=== PATIENT | male | born 1950 | race Caucasian/White ===

== ENCOUNTER 2016-06-06 12:00 | Day surgery (SDC) | payer MEDICARE ==
[2016-06-06] MEDS ORDERED: LACTATED RINGERS 1,000 ML IV ONE (12:10)
[2016-06-06] MEDS ORDERED: MIDAZOLAM 2 MG/2 ML VIAL IVP ONE (14:05)
[2016-06-06] MEDS ORDERED: fentaNYL 250 MCG/5 ML VIAL IVP ONE (14:05)
== END 2016-06-06 12:01 | disposition home or self-care (01) ==
PROC: 0DJD8ZZ Inspection of Lower Intestinal Tract, Via Natural or Artificial Opening Endoscopic (ICD-10-PCS; principal; 2016-06-06 13:00)
DX: Z12.11 Encounter for screening for malignant neoplasm of colon (principal); K57.30 Diverticulosis of large intestine without perforation or abscess without bleeding; Z79.82 Long term (current) use of aspirin; E78.5 Hyperlipidemia, unspecified; I10 Essential (primary) hypertension; K21.9 Gastro-esophageal reflux disease without esophagitis; G47.00 Insomnia, unspecified; Z87.891 Personal history of nicotine dependence
CPT/HCPCS: 45378; J3010; J7120

== ENCOUNTER 2017-03-30 10:53 | Emergency (ER) | payer MEDICARE ==
--- NOTE | 2017-03-30 11:04 | ED Physician Documentation ---
PD HPI CHEST PAIN - Stated complaint Stated Complaint: SOA,CHEST TIGHTNESS - History obtained from History obtained from: Patient - History of Present Illness Timing - onset: How many days ago (couple days ago) Timing - onset during: Rest Timing - duration: Days Timing - details: Gradual onset, Intermittant Quality: No: Pressure, Tightness Location: Substernal, Epigastric Radiation: Neck Improved by: Antacids Worsened by: No: Exertion, Inspiration, Movement, Palpation Associated symptoms: Shortness of air. No: Nausea, Feeling faint / dizzy, General Weakness, Palpitations, Cough Similar symptoms before: No: Has not had sx before Recently seen: Not recently seen Review of Systems Constitutional: denies: Fever, Chills Nose: denies: Rhinorrhea / runny nose, Congestion Throat: denies: Sore throat Cardiac: reports: Chest pain / pressure. denies: Palpitations, Pedal edema, Calf pain Respiratory: denies: Dyspnea, Cough GI: denies: Abdominal Pain, Vomiting, Diarrhea Musculoskeletal: denies: Extremity swelling Neurologic: reports: Generalized weakness. denies: Focal weakness, Numbness, Near syncope Psychiatric: reports: Depressed, Anxiety PD PAST MEDICAL HISTORY - Past Medical History Cardiovascular: Hypertension, High cholesterol Respiratory: None Endocrine/Autoimmune: None GI: GERD : None HEENT: None Psych: Panic attacks Musculoskeletal: Rheumatoid arthritis Derm: None - Past Surgical History Past Surgical History: Yes General: Colonoscopy Ortho: Arthroscopic surgery HEENT: Other - Present Medications Home Medications: Ambulatory Orders Medication Instructions Recorded Confirmed Aspirin [Aspir 81] 81 mg PO DAILY 05/23/14 03/30/17 Folic Acid 1 mg PO DAILY 05/23/14 03/30/17 Lisinopril 2.5 mg PO DAILY 05/23/14 03/30/17 Methotrexate 2.5 mg PO ONCE 05/23/14 03/30/17 Omeprazole 20 mg PO BID 05/23/14 03/30/17 Simvastatin 40 mg PO QPM 05/23/14 03/30/17 traZODone [Desyrel] 100 mg PO HS 05/23/14 03/30/17 raNITIdine HCl [Ranitidine HCl] 150 mg ORAL BID 02/26/15 03/30/17 Escitalopram [Lexapro] 10 mg PO DAILY 03/30/17 03/30/17 LORazepam [Ativan] 0.5 mg PO TID PRN 03/30/17 03/30/17 Lidocaine Viscous 2% [Xylocaine 5 ml MM Q4H PRN #1 bottle 03/30/17 Viscous 2%] Omeprazole 20 mg PO DAILY #30 tablet. 03/30/17 - Allergies Allergies/Adverse Reactions: Allergies Allergy/AdvReac Type Severity Reaction Status Date / Time No Known Drug Allergies Allergy Verified 06/05/16 13:46 - Social History Does the pt smoke?: No Smoking Status: Never smoker Does the pt drink ETOH?: Yes Does the pt have substance abuse?: No - Immunizations Immunizations are current?: Yes - POLST Patient has POLST: No PD ED PE NORMAL - Vitals Vital signs reviewed: Yes - General General: Alert and oriented X 3, No acute distress (slightly anxious), Well developed/nourished - HEENT HEENT: Pharynx benign - Neck Neck: Supple, no meningeal sign, No adenopathy - Cardiac Cardiac: RRR, No murmur - Respiratory Respiratory: Clear bilaterally - Abdomen Abdomen: Soft, Non tender - Back Back: No CVA TTP - Derm Derm: Normal color, Warm and dry - Extremities Extremities: No tenderness to palpate, Normal ROM s pain, No edema, No calf tenderness / cord - Neuro Neuro: Alert and oriented X 3, No motor deficit, Normal speech - Psych Psych: Normal mood. No: Normal affect (anxious but pleasant) Results - Vitals Vitals: Vital Signs - 24 hr 03/30/17 03/30/17 10:57 12:55 Temperature 36.1 C L 36.3 C L Heart Rate 64 55 L Respiratory 17 16 Rate Blood Pressure 156/86 H 135/83 H O2 Saturation 100 98 Oxygen O2 Source Room air - EKG (time done) 11:00 Rate: Rate (enter#) (63) Rhythm: NSR [place]: Normal Intervals: Normal [place] Ischemia: Normal ST segments. No: ST elevation c/w ischemia, ST depression Compare to prior EKG: Old EKG unavailable - Labs Labs: Laboratory Tests 03/30/17 03/30/17 03/30/17 11:00 11:00 11:00 WBC 8.3 RBC 4.64 L Hgb 15.3 Hct 44.4 MCV 95.8 H MCH 32.9 H MCHC 34.4 RDW 13.1 Plt Count 219 MPV 7.2 L Neut # 6.7 H Lymph # 0.9 L Saunders # 0.6 Eos # 0.0 Baso # 0.0 Absolute Nucleated RBC 0.00 Nucleated RBC % 0.0 Sodium 138 Potassium 3.9 Chloride 102 Carbon Dioxide 24 Anion Gap 12.0 BUN 17 Creatinine 0.8 Estimated GFR (MDRD) 97 Glucose 111 H Calcium 9.4 Total Bilirubin 0.4 AST 19 ALT 18 Alkaline Phosphatase 43 Troponin I < 0.04 B-Natriuretic Peptide Total Protein 7.2 Albumin 4.4 Globulin 2.8 Albumin/Globulin Ratio 1.6 Lipase 34 03/30/17 11:00 WBC RBC Hgb Hct MCV MCH MCHC RDW Plt Count MPV Neut # Lymph # Saunders # Eos # Baso # Absolute Nucleated RBC Nucleated RBC % Sodium Potassium Chloride Carbon Dioxide Anion Gap BUN Creatinine Estimated GFR (MDRD) Glucose Calcium Total Bilirubin AST ALT Alkaline Phosphatase Troponin I B-Natriuretic Peptide 41 Total Protein Albumin Globulin Albumin/Globulin Ratio Lipase - Rads (name of study) chest Radiology: Prelim report reviewed, EMP read contemporaneously (no acute process) PD MEDICAL DECISION MAKING - ED course Complexity details: re-evaluated patient (symptoms improved with GI cocktail. Labs normal. ) Departure - Departure Disposition: Home, Self Care Clinical Impression: Esophagitis Chest pain Qualifiers: Chest pain type: unspecified Qualified Code(s): R07.9 - Chest pain, unspecified Clinical Impression: (Ruled Out): Myocardial infarction Condition: Stable Record reviewed to determine appropriate education?: Yes Instructions: ED Chest Pain NonCardiac, ED GERD Follow-Up: Ness Snider PA [Primary Care Provider] - Prescriptions: Lidocaine Viscous 2% [Xylocaine Viscous 2%] 5 ml MM Q4H PRN #1 bottle PRN Reason: Pain Omeprazole 20 mg PO DAILY #30 tablet.dr Comments: Frequent fluids. Continue current medications except for the Ranitidine. Add omeprazole 20 mg daily for the next month. This is to try to reduce the stomach acids and allow the stomach and esophagus to heal better. He can use antacids such as Maalox or Mylanta periodically for the discomfort. Add to it 5 mL of lidocaine if needed for improved coating of the area. Follow-up with your primary care if not improved over the next 3-5 days. There is no signs of heart attack or significant problem causing the pain. Regarding your blood pressure, just check it over the next week or so once or twice a day and see if it maintains consistently higher for was just responsive to the symptoms and situation short-term. Discharge Date/Time: 03/30/17 12:59
[2017-03-30] MEDS ORDERED: LIDOCAINE VISCOUS 2% 15 ML UDC MM STA (11:24)
[2017-03-30] MEDS ORDERED: MAG HYDROX/AL HYDROX/SIMETH 30 ML UDC PO STA (11:24)
[2017-03-30] MEDS ORDERED: FAMOTIDINE 20 MG TABLET PO STA (11:25)
[2017-03-30 11:27] LABS: BASOPHILS % (AUTO) 0.3 %; EOSINOPHILS % (AUTO) 0.2 %; HGB - HEMOGLOBIN 15.3 g/dL (14.0-18.0); LYMPHOCYTES # (AUTO) 0.9 10^3/uL (1.5-3.5); LYMPHOCYTES % (AUTO) 10.4 %; MEAN CORPUSCULAR HEMOGLOBIN 32.9 pg (27.0-31.0); MEAN CORPUSCULAR HGB CONC 34.4 g/dL (32.0-36.0); MEAN CORPUSCULAR VOLUME 95.8 fL (80.0-94.0); MEAN PLATELET VOLUME 7.2 fL (7.4-11.4); MONOCYTES # (AUTO) 0.6 10^3/uL (0.0-1.0); MONOCYTES % (AUTO) 7.9 %; NEUTROPHILS # (AUTO) 6.7 10^3/uL (1.5-6.6); NEUTROPHILS % (AUTO) 81.2 %; PLT - PLATELET COUNT 219 10^3/uL (130-450); RED BLOOD COUNT 4.64 10^6/uL (4.70-6.10); RED CELL DISTRIBUTION WIDTH 13.1 % (12.0-15.0); WHITE BLOOD COUNT 8.3 x10^3/uL (4.8-10.8)
[2017-03-30 11:40] LABS: ALBUMIN 4.4 g/dL (3.2-5.5); ALBUMIN/GLOBULIN RATIO 1.6 (1.0-2.2); BILIRUBIN,TOTAL 0.4 mg/dL (0.2-1.0); CALCIUM 9.4 mg/dL (8.5-10.3); CREATININE 0.8 mg/dL (0.6-1.2); TOTAL PROTEIN 7.2 g/dL (6.7-8.2)
--- NOTE | 2017-03-30 12:01 | XRAY Preliminary Report ---
Exam: XR CHEST 2 VIEW X-RAY IMPRESSION: Negative 2-view chest radiography. [facility] SITE ID: [id number]
--- NOTE | 2017-03-30 12:01 | XRAY Report ---
EXAM: CHEST RADIOGRAPHY EXAM DATE: 03/30/2017 11:35 AM. CLINICAL HISTORY: Chest pain left sided. COMPARISON: 05/23/2014. TECHNIQUE: 2 views. FINDINGS: Lungs/Pleura: No focal opacities evident. No pleural effusion. No pneumothorax. Normal volumes. Mediastinum: Heart and mediastinal contours are unremarkable. Other: None. IMPRESSION: Negative 2-view chest radiography. [facility] Referring Provider Line: [phone] SITE ID: [id number]
[2017-03-30 12:56] VITALS: BP 135/83
== END 2017-03-30 12:59 | disposition home or self-care (01) ==
LOC: ED 10:53
DX: K20.9 Esophagitis, unspecified (principal); R07.9 Chest pain, unspecified; I10 Essential (primary) hypertension; E78.00 Pure hypercholesterolemia, unspecified; K21.9 Gastro-esophageal reflux disease without esophagitis; M06.9 Rheumatoid arthritis, unspecified; Z79.82 Long term (current) use of aspirin
CPT/HCPCS: 36415; 71046; 80053; 83690; 83880; 84484; 85025; 93005; 99283; 99284; A9270

== ENCOUNTER 2018-07-01 11:51 | Emergency (ER) | payer MEDICARE, OTHER ==
[2018-07-01] MEDS ORDERED: BUPIVACAINE 0.5% PF 10 ML VIAL SUBQ STA (12:28)
[2018-07-01] MEDS ORDERED: TETANUS/DIPHTHERIA/PERTUSSIS 0.5 ML SYRINGE IM ONE (13:58)
[2018-07-01] MEDS ORDERED: ceFAZolin 1 GM VIAL IM STA (13:58)
--- NOTE | 2018-07-01 14:05 | ED Physician Documentation ---
PD HPI UPPER EXT INJURY - Stated complaint Stated Complaint: LEFT FINGER CUTS - Chief complaint Chief Complaint: Laceration - History obtained from History obtained from: Patient, Family - History of Present Illness Location: Left, Finger (middle and ring) Type of injury: Laceration Where injury occurred: Home Timing - onset: Today Timing - duration: Minutes Timing - details: Abrupt onset, Still present Improved by: Rest, Immobilization Worsened by: Moving, Palpating Associated symptoms: No: Weakness, Numbness, Tingling Contributing factors: No: Anticoagulated Similar symptoms before: Diagnosis (laceration) Recently seen: Not recently seen - Additonal information Additional information: Previously well 67-year-old male was using a date oh blade on his table saw with an appropriate guard when the piece of wood he was holding kicked back when he did not and threw his hand into the tip of the blade. He has a kerf-like laceration to the left middle finger and a laceration to the tip of the ring finger. Review of Systems Constitutional: denies: Fever Eyes: denies: Decreased vision Ears: denies: Ear pain Nose: denies: Congestion Respiratory: denies: Cough GI: denies: Vomiting Skin: denies: Rash Musculoskeletal: reports: Extremity pain. denies: Neck pain, Back pain Neurologic: denies: Generalized weakness, Focal weakness, Numbness PD PAST MEDICAL HISTORY - Past Medical History Cardiovascular: Hypertension, High cholesterol Respiratory: None Endocrine/Autoimmune: None GI: GERD : None HEENT: None Psych: Panic attacks Musculoskeletal: Rheumatoid arthritis Derm: None - Past Surgical History Past Surgical History: Yes General: Colonoscopy Ortho: Arthroscopic surgery HEENT: Other - Present Medications Home Medications: Ambulatory Orders Medication Instructions Recorded Confirmed Aspirin [Aspir 81] 81 mg PO DAILY 05/23/14 03/30/17 Folic Acid 1 mg PO DAILY 05/23/14 03/30/17 Lisinopril 2.5 mg PO DAILY 05/23/14 03/30/17 Methotrexate 2.5 mg PO ONCE 05/23/14 03/30/17 Omeprazole 20 mg PO BID 05/23/14 03/30/17 Simvastatin 40 mg PO QPM 05/23/14 03/30/17 traZODone [Desyrel] 100 mg PO HS 05/23/14 03/30/17 raNITIdine HCl [Ranitidine HCl] 150 mg ORAL BID 02/26/15 03/30/17 Escitalopram [Lexapro] 10 mg PO DAILY 03/30/17 03/30/17 LORazepam [Ativan] 0.5 mg PO TID PRN 03/30/17 03/30/17 Lidocaine Viscous 2% [Xylocaine 5 ml MM Q4H PRN #1 bottle 03/30/17 Viscous 2%] Omeprazole 20 mg PO DAILY #30 tablet. 03/30/17 Cephalexin [Keflex] 500 mg PO Q6H #28 capsule 07/01/18 Hydrocodone/Acetaminophen 1 - 2 each PO Q6H PRN #14 tablet 07/01/18 [Hydrocodon-Acetaminophen 5-325] - Allergies Allergies/Adverse Reactions: Allergies Allergy/AdvReac Type Severity Reaction Status Date / Time No Known Drug Allergies Allergy Verified 06/05/16 13:46 - Social History Does the pt smoke?: No Smoking Status: Never smoker Does the pt drink ETOH?: Yes Does the pt have substance abuse?: No - Immunizations Immunizations are current?: Yes - POLST Patient has POLST: No PD ED PE NORMAL - Vitals Vital signs reviewed: Yes (hypertensive mild ) - General General: Alert and oriented X 3, No acute distress, Well developed/nourished - HEENT HEENT: Atraumatic, PERRL, EOMI - Respiratory Respiratory: No respiratory distress - Derm Derm: Normal color, Warm and dry, No rash - Extremities Extremities: Other (The left middle finger has a laceration over the dorsum of the distal phlange that extends from the DIP through the nail to the tip of the finger. There is a kerf of tissue missing 1/4 inch or 5mm over the nail bed itself. The bone is not directly visible. The ring finger has a laceration to the tip about 1cm that does not involve the nail bed. ) - Neuro Neuro: Alert and oriented X 3, regional cra 2-12 intact, No motor deficit, No sensory deficit, Normal speech Eye Opening: Spontaneous Motor: Obeys Commands Verbal: Oriented GCS Score: 15 - Psych Psych: Normal mood, Normal affect Results - Vitals Vitals: Vital Signs - 24 hr 07/01/18 07/01/18 07/01/18 11:56 12:17 14:36 Temperature 37.0 C Heart Rate 64 89 Respiratory 18 16 18 Rate Blood Pressure 147/82 H 154/78 H O2 Saturation 97 99 Oxygen O2 Source Room air - Rads (name of study) fingers left Radiology: Prelim report reviewed (Impression: There is an open longitudinal fracture of the distal tuft middle finger.), EMP read indepedently, See rad report Procedures - Laceration (location) middle and ring fingers Length in cm: 4 Wound type: Irregular, Into subcut fat, Clean, Other (3cm kerf to the dorsum of #3 distally and 1cm lac to the distal #4.) Neurovascular status: Sensory intact, Motor intact, Vascular intact Anesthesia: Marcaine 0.5%, Volume - enter cc (9ml), OTH (digital block placed) Wound Preparation: Hibiclens, Irrigated copiously NS, Wound explored, To the base, Wound edges modified, Other (nail fragments from #3 are disected and removed.) Deep layer closure: Vicryl, size #-0 - enter number (5-0), # sutures - enter number (2 sutures to the nail bed) Skin layer closure: Nylon, Interrupted, Size #-0 - enter number (5-0) Other: Patient tolerated well, No complications, Neurovascular intact, Dressing applied, Tetanus booster given Complexity: Intermediate PD MEDICAL DECISION MAKING - ED course Complexity details: reviewed old records, reviewed results, re-evaluated patient, considered differential, d/w patient, d/w family ED course: 67-year-old male with a table saw laceration through the nail bed of the middle finger with open fracture. The wound is cleansed and irrigated copiously the defect is closed partially with reapproximation and the patient is administered IM Ancef and we will place him on some Keflex. Is given a tetanus booster. Departure - Departure Disposition: 01 Home, Self Care Clinical Impression: Open fracture of tuft of distal phalanx of finger Laceration of nail bed of finger Qualifiers: Encounter type: initial encounter Qualified Code(s): S61.319A - Laceration without foreign body of unspecified finger with damage to nail, initial encounter Finger laceration Qualifiers: Encounter type: initial encounter Finger: index finger Damage to nail status: with damage Foreign body presence: without foreign body Laterality: left Qual ified Code(s): S61.311A - Laceration without foreign body of left index finger with damage to nail, initial encounter Condition: Stable Instructions: ED Laceration Hand, ED Avulsion Nail Complete Follow-Up: Ness Snider PA [Primary Care Provider] - Prescriptions: Cephalexin [Keflex] 500 mg PO Q6H #28 capsule Hydrocodone/Acetaminophen [Hydrocodon-Acetaminophen 5-325] 1 - 2 each PO Q6H PRN #14 tablet PRN Reason: pain Discharge Date/Time: 07/01/18 14:36
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
[2018-07-01 14:36] VITALS: BP 154/78
== END 2018-07-01 14:36 | disposition home or self-care (01) ==
LOC: ED 11:51
DX: S62.633A Displaced fracture of distal phalanx of left middle finger, initial encounter for closed fracture (principal); S61.315A Laceration without foreign body of left ring finger with damage to nail, initial encounter; W31.2XXA Contact with powered woodworking and forming machines, initial encounter; Y92.009 Unspecified place in unspecified non-institutional (private) residence as the place of occurrence of the external cause; Z23 Encounter for immunization; I10 Essential (primary) hypertension; E78.00 Pure hypercholesterolemia, unspecified
CPT/HCPCS: 12032; 73140; 90471; 96372; 99283

== ENCOUNTER 2018-09-04 08:29 | Outpatient (CLI) | payer MEDICARE, OTHER ==
--- NOTE | 2018-09-04 15:42 | MRI Report ---
Reason: PAIN IN LEFT SHOULDER Procedure Date: 09/04/2018 Accession Number: [id number] / [id number] Procedure: MRI - Shoulder LT W/O CPT Code: FULL RESULT: EXAM: LEFT SHOULDER MRI WITHOUT CONTRAST EXAM DATE: 09/04/2018 08:56 AM. CLINICAL HISTORY: Pain in left shoulder. COMPARISON: None. TECHNIQUE: Multiplanar, multisequence T1-weighted and fluid-sensitive sequences of the shoulder without contrast. Other: None. FINDINGS: Acromioclavicular Region: The acromion is type II unipartite. AC joint is moderately osteoarthritic. Small amount of marginal arthrosis is seen and there is some subjacent marrow edema. The coracoacromial and coracoclavicular ligaments are intact. Trace amount of bursal fluid. Glenohumeral Region: No subluxation. Small joint effusion. No loose bodies. The articular cartilage is unremarkable. The glenohumeral ligaments and joint capsule are unremarkable. Bone Marrow: No fracture, marrow edema or bone lesions. Labrum: Superior margin of the labrum was difficult to assess, it is somewhat irregular and has a macerated appearance. Musculature/Rotator Cuff: Some increased T2 signal and partial undersurface thinning of the subscapularis and supraspinatus portion of the rotator cuff. Infraspinatus and teres minor are unremarkable. No proximal muscle edema or fatty atrophy. Biceps Tendon: Long head of biceps tendon is torn and retracted distally. Other: The subcutaneous tissues are unremarkable. IMPRESSION: 1. Type II unipartite undersurface osseous acromion shape. AC joint is moderately osteoarthritic. Trace amount of bursal fluid is present. Small glenohumeral joint effusion. No loose bodies. 2. Full-thickness tear of the biceps tendon with distal retraction, likely causing some maceration of the superior labral margin. No displaced fragment. Remainder of the labrum appears unremarkable. 3. Partial-thickness undersurface tear of the subscapularis and supraspinatus portion of the cuff estimated to be about one-third of the cuff thickness. No proximal muscle edema or fatty atrophy. [facility]
== END 2018-09-04 08:30 | disposition home or self-care (01) ==
LOC: DI 08:29
PROVIDERS: ATTEND Registered Nurse
DX: M19.012 Primary osteoarthritis, left shoulder (principal); M25.412 Effusion, left shoulder; S46.112A Strain of muscle, fascia and tendon of long head of biceps, left arm, initial encounter; M75.102 Unspecified rotator cuff tear or rupture of left shoulder, not specified as traumatic

== ENCOUNTER 2019-04-22 07:01 | Outpatient (CLI) | payer MEDICARE, OTHER ==
--- NOTE | 2019-04-22 09:17 | Ultrasound Report ---
Reason: SCREENING FOR AAA Procedure Date: 04/22/2019 Accession Number: [id number] / [id number] Procedure: US - Aorta Screening CPT Code: Final Report FULL RESULT: EXAM: AORTIC DOPPLER ULTRASOUND EXAM DATE: 04/22/2019 07:16 AM. CLINICAL HISTORY: Abdominal aortic aneurysm screening. COMPARISON: None. TECHNIQUE: Real-time sonographic imaging of retroperitoneal vascular structures, including color-flow, Doppler flow and spectral analysis was performed by the ergonomics technician. Multiple pharmaceutical representative static images were saved for review. FINDINGS: Aorta: The abdominal aorta was adequately visualized. No evidence for abdominal aortic aneurysm. Aorta: Proximal: Sagittal AP 2.5 cm. Mid: Transverse 1.9 x 2.0 cm. Distal: Transverse 1.9 x 2.1 cm. Caliber: WNL: Yes. Plaque visualized: Yes. Doppler: Prox Aorta PSV: cm/sec. Mid Aorta PSV: cm/sec. Dist Aorta PSV: cm/sec. Prox RCIA PSV: cm/sec. Prox LCIA PSV: cm/sec. Iliac Vessels: The visualized proximal common iliac arteries are normal in caliber. Iliacs: Right Iliac: Transverse 1.5 x 1.7 cm. Left Iliac: Transverse 1.5 x 1.4 cm. Other: None. IMPRESSION: No abdominal aortic aneurysm. [facility]
== END 2019-04-22 07:02 | disposition home or self-care (01) ==
LOC: DI 07:01
PROVIDERS: ATTEND Registered Nurse
DX: Z13.6 Encounter for screening for cardiovascular disorders (principal)
CPT/HCPCS: 76706

== ENCOUNTER 2020-09-08 10:50 | Outpatient (CLI) | payer MEDICARE, BC ==
[2020-09-08 11:25] LABS: CHOL/HDL RATIO 3.5 (<5.0); CHOLESTEROL 164 mg/dL; HDL CHOLESTEROL 47 mg/dL; LDL CHOLESTEROL,CALCULATED 103 mg/dL; LDL/HDL RATIO 2.2 (<3.6); TRIGLYCERIDES 70 mg/dL; VLDL CHOLESTEROL 14 mg/dL
[2020-09-08 11:55] LABS: ESTIMATED AVERAGE GLUCOSE 114 mg/dL (70-100); HEMOGLOBIN A1c% 5.6 % (4.27-6.07)
== END 2020-09-08 10:51 | disposition home or self-care (01) ==
LOC: LAB 10:50
PROVIDERS: ATTEND Registered Nurse
DX: Z01.84 Encounter for antibody response examination (principal); D84.9 Immunodeficiency, unspecified; R73.03 Prediabetes; E55.9 Vitamin D deficiency, unspecified; E78.5 Hyperlipidemia, unspecified; Z79.899 Other long term (current) drug therapy
CPT/HCPCS: 36415; 80061; 82306; 83036; 83721; 86769

== ENCOUNTER 2022-11-29 11:15 | Outpatient (CLI) | payer MEDICARE, BC ==
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
== END 2022-11-29 11:16 | disposition home or self-care (01) ==
LOC: DI 11:15
PROVIDERS: ATTEND Physician Assistant
DX: S61.412A Laceration without foreign body of left hand, initial encounter (principal)